=== PATIENT | female | born 1990 | race African-American/Black ===

== ENCOUNTER 2017-05-17 14:23 | Emergency (ER) | payer MEDICAID ==
[~2017-05-17] VITALS: Ht 154.9 cm; Wt 70.1 kg
[2017-05-17 14:49] VITALS: BP 122/74
[2017-05-17] MEDS ORDERED: ONDANSETRON ODT 4 MG ONE (14:52)
[2017-05-17] MEDS ORDERED: ONDANSETRON ODT 4 MG PO ONE (15:00)
[2017-05-17 15:04] LABS: HEMATOCRIT 40.8 % (34.6-47.8); HEMOGLOBIN 13.4 g/dL (11.7-16.4); WHITE BLOOD COUNT 7.3 x10^3/uL (3.4-10)
[2017-05-17 15:09] LABS: ASPARTATE AMINO TRANSFERASE 10 U/L (15-37); BLOOD UREA NITROGEN 7 mg/dL (7-18)
== END 2017-05-17 15:43 | disposition home or self-care (01) ==
LOC: ED 15:05
DX: R10.32 Left lower quadrant pain (principal); R11.2 Nausea with vomiting, unspecified; J45.909 Unspecified asthma, uncomplicated
CPT/HCPCS: 36415; 80053; 81001; 84702; 85025; 87086; 99284; Q0162

== ENCOUNTER 2017-06-03 22:47 | Emergency (ER) | payer MEDICAID ==
[~2017-06-03] VITALS: Ht 154.9 cm; Wt 72.5 kg
[2017-06-03 22:49] VITALS: BP 114/76
[2017-06-03 23:35] LABS: HCG UR LOT HCG7030192
[2017-06-03 23:43] LABS: HCG UR OBC PASS
== END 2017-06-04 01:21 | disposition home or self-care (01) ==
LOC: ED 06-04 00:43
DX: R10.2 Pelvic and perineal pain (principal)
CPT/HCPCS: 76830; 81001; 81025; 87086; 99285

== ENCOUNTER 2017-07-09 21:56 | Emergency (ER) | payer MEDICAID ==
[~2017-07-09] VITALS: Ht 154.9 cm; Wt 70.0 kg
[2017-07-09 22:00] VITALS: BP 112/74
[2017-07-09] MEDS ORDERED: IBUPROFEN 200 MG TABLET ONE (22:59)
[2017-07-09] MEDS ORDERED: IBUPROFEN 200 MG TABLET PO ONE (23:00)
== END 2017-07-09 23:09 ==
LOC: ED 23:03
DX: K02.9 Dental caries, unspecified (principal); J45.909 Unspecified asthma, uncomplicated
CPT/HCPCS: 99282

== ENCOUNTER 2017-08-25 12:58 | Emergency (ER) | payer MEDICAID ==
[~2017-08-25] VITALS: Ht 157.5 cm; Wt 68.7 kg
[2017-08-25 13:12] VITALS: BP 124/82
== END 2017-08-25 17:42 | disposition left against medical advice (07) ==
LOC: ED 17:36
DX: Z53.21 Procedure and treatment not carried out due to patient leaving prior to being seen by health care provider (principal)

== ENCOUNTER 2018-01-22 22:11 | Emergency (ER) | payer MEDICAID ==
[~2018-01-22] VITALS: Ht 154.9 cm; Wt 73.0 kg
[2018-01-22 23:30] LABS: CULTURE INDICATED? YES; MICROSCOPIC INDICATED
[2018-01-22 23:52] LABS: BASOPHILS # (AUTO) 0.11 x10^3/uL (0-0.1); BASOPHILS % (AUTO) 1 % (0-1); EOSINOPHILS # (AUTO) 0.28 x10^3/uL (0-0.4); EOSINOPHILS % (AUTO) 2 % (1-7); LYMPHOCYTES % (AUTO) 20 % (22-44); MD NO; MEAN CORPUSCULAR HEMOGLOBIN 29.8 pg (27.0-34.8); MEAN CORPUSCULAR HGB CONC 33.4 g/dL (32.4-35.8); MEAN CORPUSCULAR VOLUME 89.2 fL (80-100); MEAN PLATELET VOLUME 8.7 fL (7.4-10.4); MONOCYTES # (AUTO) 0.86 x10^3/uL (0.2-0.8); MONOCYTES % (AUTO) 7 % (2-9); NEUTROPHILS # (AUTO) 8.73 x10^3/uL (1.8-6.8); NEUTROPHILS % (AUTO) 70 % (42-75); PLATELET COUNT 359 x10^3/uL (130-400); RED CELL DISTRIBUTION WIDTH 14.9 % (9.6-15.2)
[2018-01-23 00:04] LABS: ALBUMIN 3.8 g/dL (3.4-5.0); ANION GAP 7 mmol/L (5-15); CALCIUM 9.4 mg/dL (8.5-10.1); CHLORIDE 110 mmol/L (98-107); CREATININE 0.68 mg/dL (0.55-1.02)
[2018-01-23 00:07] VITALS: BP 116/64
[2018-01-23] MEDS ORDERED: NITROFURANTOIN (MACROBID) 100 MG CAPSULE ONE (00:18)
[2018-01-23] MEDS ORDERED: NITROFURANTOIN (MACROBID) 100 MG CAPSULE PO ONE (00:30)
== END 2018-01-23 00:58 | disposition left against medical advice (07) ==
LOC: ED 23:59
DX: R10.32 Left lower quadrant pain (principal); R10.31 Right lower quadrant pain
CPT/HCPCS: 36415; 76830; 80048; 81001; 82040; 84703; 85025; 87086; 99285

== ENCOUNTER 2018-03-18 06:08 | Emergency (ER) | payer MEDICAID ==
[~2018-03-18] VITALS: Ht 154.9 cm; Wt 72.6 kg
[2018-03-18 06:51] LABS: HCG UR SG >= 1.030 (1.003-1.030)
[2018-03-18 08:19] LABS: MICROSCOPIC INDICATED
[2018-03-18 08:20] LABS: CULTURE INDICATED? NO
[2018-03-18] MEDS ORDERED: KETOROLAC 30 MG/1 ML IM ONE (08:30)
[2018-03-18] MEDS ORDERED: METHOCARBAMOL 750 MG TABLET PO ONE (08:30)
[2018-03-18] MEDS ORDERED: KETOROLAC 30 MG/1 ML ONE (08:42)
[2018-03-18] MEDS ORDERED: METHOCARBAMOL 750 MG TABLET ONE (08:42)
[2018-03-18 08:57] VITALS: BP 95/70
== END 2018-03-18 09:05 | disposition home or self-care (01) ==
LOC: ED 08:56
DX: M54.6 Pain in thoracic spine (principal); R30.0 Dysuria; J45.909 Unspecified asthma, uncomplicated
CPT/HCPCS: 81001; 81025; 96372; 99284; J1885

== ENCOUNTER 2018-04-22 12:23 | Emergency (ER) | payer BC, MEDICAID ==
[~2018-04-22] VITALS: Ht 154.9 cm; Wt 71.0 kg
[2018-04-22 12:34] VITALS: BP 109/74
[2018-04-22 13:28] LABS: HCG UR SG 1.027 (1.003-1.030)
[2018-04-22 13:30] LABS: MICROSCOPIC INDICATED
[2018-04-22 13:40] LABS: CULTURE INDICATED? NO
== END 2018-04-22 14:03 | disposition home or self-care (01) ==
LOC: ED 13:00
DX: N93.8 Other specified abnormal uterine and vaginal bleeding (principal); N92.0 Excessive and frequent menstruation with regular cycle; N92.1 Excessive and frequent menstruation with irregular cycle
CPT/HCPCS: 81001; 81025; 99284